=== PATIENT | female | born 1955 | race Caucasian/White ===

== ENCOUNTER 2022-04-30 12:32 | Outpatient (CLI) | payer BC, SELFPAY ==
--- NOTE | ~2022-04-30 | XR_ITS ---
XR lumbar spine min 4V DATE: 04/30/2022 13:04 INDICATION: Back pain. Lumbago. TECHNIQUE: AP, lateral, coned lateral lumbosacral views and flexion and extension lateral views. COMPARISON: 11/13/2016 MRI lumbar spine 03/11/2016 lumbar spine FINDINGS: There is diffuse osteopenia. Minimal anterolisthesis at L4-5 in flexion, reduced in neutral and extension. Otherwise normal alignm ent of the lumbar spine in flexion, neutral and extension. No fracture or bone destruction is evident. The included lower thoracic and lumbar pedicles are intac t. Minimal degenerative spurring of the lumbar spine. Lumbar and lumbosacral interspaces are relative ly well preserved. IMPRESSION: Minimal degenerative spurring. Minimal anterolisthesis at L4-5 in flexion Reviewed, dictated and finalized at location B.
== END 2022-04-30 12:33 | disposition home or self-care (01) ==
LOC: ANHIMG 12:38
PROVIDERS: PCP Internal Medicine
DX: M54.50 Low back pain, unspecified (principal); M77.8 Other enthesopathies, not elsewhere classified; M43.16 Spondylolisthesis, lumbar region
CPT/HCPCS: 72110

== ENCOUNTER 2022-05-20 07:30 | Outpatient (CLI) | payer BC, SELFPAY ==
--- NOTE | ~2022-05-20 | MR_ITS ---
. EXAMINATION: MR lumbar spine wo con DATE: 05/20/2022 08:33 INDICATION: Lumbago. TECHNIQUE: Magnetic resonance imaging (MRI) of the lumbar spine was performed without intravenous con trast. Sequences included sagittal T2-weighted FSE, sagittal T2-weighted FS FSE, sagittal T1-weighted FSE, and axial T2-weighted FSE. COMPARISON: Lumbar spine MRI 11/13/2016 FINDINGS: There is 3 degrees dextrocurvature of lumbar spine. Vertebral body heights are normal. Inte rvertebral disc heights are normal. The distal spinal cord signal intensity is normal. The conus medu llaris is at L1. The following disc levels are specifically discussed: L1-L2: The disc does not extend beyond the endplate margin. There is mild left facet joint osteoarthr itis. There is no neural foraminal stenosis. There is no central canal stenosis. L2-L3: The disc does not extend beyond the endplate margin. There is mild bilateral facet joint osteo arthritis. There is no neural foraminal stenosis. There is no central canal stenosis. L3-L4: The disc is mildly bulging. There is mild bilateral facet joint osteoarthritis. There is mild bilateral neural foraminal stenosis. There is no central canal stenosis. L4-L5: The disc is mildly bulging. There is no facet joint osteoarthritis. There is mild bilateral ne ural foraminal stenosis. There is no central canal stenosis. L5-S1: The disc is mildly bulging. There is mild right and moderate left facet joint osteoarthritis. There is mild bilateral neural foraminal stenosis. There is mild central canal stenosis. IMPRESSION: 1. Mild lumbar spondylosis, stable from 11/13/2016. Reviewed, dictated and finalized at location A.
== END 2022-05-20 07:31 | disposition home or self-care (01) ==
PROVIDERS: PCP Internal Medicine
DX: M54.50 Low back pain, unspecified (principal); M47.816 Spondylosis without myelopathy or radiculopathy, lumbar region
CPT/HCPCS: 72148

== ENCOUNTER 2023-10-18 11:09 | Emergency (ER) | payer BC, SELFPAY ==
[2023-10-18] VITALS (8 sets, daily range): BP systolic 122–147; BP diastolic 66–75; PULSE 70–88; RESP 13–26; TEMP 36.3; O2SAT 99–100
--- NOTE | ~2023-10-18 | CT_ITS ---
EXAMINATION: CT abdomen pelvis w con DATE: 10/18/2023 16:33 INDICATION: LLQ pain TECHNIQUE: Computed tomography (CT) of the abdomen and pelvis was performed with 100 mL Omnipaque-350 intravenous contrast. Automated exposure control and iterative reconstruction technique were employe d. The dose-length product was 406.50 mGy-cm. COMPARISON: 05/30/2015. FINDINGS: Lower thorax: Unremarkable Liver: Normal. Biliary/Gallbladder: Gallbladder is collapsed. No bile duct dilation. Pancreas: No mass or duct dilation. Spleen: Normal. Adrenals:No mass. Kidneys: No suspicious mass, obstructing stone, or hydronephrosis. GI tract: Mild distal esophageal and gastric wall edema. Mild sigmoid wall edema. No small or large b owel dilation. Normal appendix. Mesentery/Peritoneum: No ascites, mass, or free air. Retroperitoneum: No mass. Pelvis: Absent uterus. Mild bladder wall thickening. Soft Tissues: Soft tissues and body wall unremarkable. Bones: No acute osseous finding. IMPRESSION: Mild esophagitis/gastritis. Cystitis versus bladder wall thickening from incomplete distention. Correlate with urinalysis. Possible mild sigmoid colitis. Reviewed, dictated and finalized at location K. [facility] IMPRESSION: Mild esophagitis/gastritis. Cystitis versus bladder wall thickening from incomplete distention. Correlate w ith urinalysis. Possible mild sigmoid colitis.
[2023-10-18 11:35] LABS: Basophils Percent Auto 0.4 % (0.2-1.2); Eosinophils Absolute Auto 0.1 K/mm3 (0-0.3); Eosinophils Percent Auto 1.2 % (0-4.4); Hematocrit 42.2 % (37.0-47.0); Hemoglobin 13.3 g/dL (12.0-15.0); Immature Granulocyte Absolute 0.02 K/mm3 (0.00-0.031); Immature Granulocyte Percent A 0.4 % (0-0.5); Lymphocytes Absolute Auto 1.71 K/mm3 (0.9-3.2); Mean Corpuscular HGB Conc 31.5 g/dl (32-36); Mean Corpuscular Hemoglobin 30.3 pg (26-34); Mean Corpuscular Volume 96.1 fl (80-100); Mean Platelet Volume 10.3 fl (7.4-10.4); Monocytes Absolute Auto 0.6 K/mm3 (0.1-0.6); Monocytes Percent Auto 11.8 % (2.6-8.5); Neutrophils Absolute Auto 2.8 K/mm3 (1.3-6.7); Neutrophils Percent Auto 53.2 % (45.5-73.1); Platelet Count Result 271 k/mm3 (150-375); Red Blood Count 4.39 M/mm3 (4.2-5.4); Red Cell Distribution Width 12.5 % (11.5-14.5); White Blood Count 5.2 K/mm3 (4.5-10.0)
[2023-10-18 11:44] LABS: Prothrombin Time 13.3 Seconds (11.1-14.7)
[2023-10-18 11:45] LABS: Partial Thromboplastin Time 28.8 SECONDS (22.3-36.8)
[2023-10-18 11:51] LABS: Alanine Aminotransferase 20 U/L (6-35); Albumin Level 4.5 g/dL (3.5-5.1); Alkaline Phosphatase 68 U/L (38-126); Anion Gap 9 mmol/L (8-16); Aspartate Amino Transferase 25 U/L (14-36); Bilirubin,Total 0.4 mg/dL (0.2-1.3); Blood Urea Nitrogen 15 mg/dL (7-17); Calcium 9.6 mg/dL (8.4-10.2); Carbon Dioxide 27 mmol/L (22-30); Chloride 103 mmol/L (98-107); Estimated Glomerular Filt Rate > 60; Glucose 123 mg/dL (65-110); Sodium 139 mmol/L (137-145)
--- NOTE | 2023-10-18 17:15 | ED.GENADULT ---
HPI - General Adult General Chief complaint: GI Bleed Stated complaint: Rectal bleeding Time Seen by Provider: 10/18/23 15:58 History of Present Illness HPI narrative: The patient is a 68-year-old female who presents ER after having a bloody bowel movement. She felt sudden need to have bowel movement and when she did she felt more comfortable bottom when she looked in the stool there is only blood and no feces. She reports she has been having some nagging left-sided abdominal pain over last 3 days. No fevers chills or sweats. No history of diverticulitis. Denies urinary frequency urgency or dysuria. No history of hemorrhoids. Last colonoscopy was 5 years ago. Related Data Home Medications Medication Instructions Recorded Confirmed amlodipine 5 mg tablet 5 mg PO DAILY 09/17/23 09/17/23 blood-glucose transmitter (Dexcom 09/17/23 09/17/23 G6 Transmitter device) ezetimibe 10 mg tablet 10 mg PO DAILY 09/17/23 09/17/23 fexofenadine 180 mg tablet 180 mg PO DAILY 09/17/23 09/17/23 hyoscyamine sulfate 0.125 mg 0.125 mg PO QID PRN 09/17/23 09/17/23 tablet (Levsin) Allergies Allergy/AdvReac Type Severity Reaction Status Date / Time egg Allergy Mild Unknown Verified 09/17/23 14:15 lactose Allergy Mild Abdominal Verified 09/17/23 14:15 Pain milk Allergy Mild Abdominal Verified 09/17/23 14:15 Pain atorvastatin AdvReac Mild Unknown Verified 09/17/23 14:15 SEAFOOD Allergy Mild Anaphylactic Uncoded 09/17/23 14:15 Shock Review of Systems Review of Systems: All systems reviewed & are unremarkable except as noted in HPI and below Constitutional: Constitutional: Reports no additional constitutional complaints ENT: Reports system reviewed and no additional complaints, except as documented Cardiovascular: Cardiovascular: Reports no additional cardiovascular complaints Respiratory: Respiratory: Reports no additional respiratory complaints Gastrointestinal: Gastrointestinal: Reports abdominal pain, Denies diarrhea, Denies nausea and Denies vomiting Comments: Blood in stool PMFSH Past Medical History Medical History (Updated 10/18/23 @ 18:50 by Grant Diop MD) Diabetes Seasonal allergies Surgical History Surgical History (Updated 09/17/23 @ 14:18 by Jovanni Gaytan CMA) H/O: hysterectomy History of tonsillectomy Social History Social History (Updated 09/17/23 @ 14:16 by Jovanni Gaytan [facility]) Social History: Caffeine--Coffee 1 cup daily Smoking status: Never smoker Substance use: never Do You Feel Safe in your Home?: Yes Lack of Transportation: No Lack of Food: Never True Current Housing: I Have Housing Concerned About Future Housing: No Difficulty Paying Gas/Electric Bills: No Difficulty Paying for Meds: No Currently Unemployed: No Education: Bachelor's Degree Difficulty w/ Childcare or Family Care: No Exam Narrative: GENERAL: Well-appearing, well-nourished, and in no acute distress. HEAD: Normocephalic, atraumatic. ENT: Mucous membranes moist. NECK: Supple. CHEST: Clear to auscultation. No respiratory distress. HEART: Regular rate and rhythm. Normal peripheral pulses. ABDOMEN: Soft, mild tenderness left mid and upper abdomen, nondistended. She will rectal exam with positive occult blood with brown stool. EXTREMITIES: Normal range of motion. No edema. SKIN: Warm, dry, no rash. NEURO: Alert and oriented x3. PSYCH: Normal mood and affect. Course Course Emergency Course: Patient educated on labs and imaging studies. Discussed treatment plan. Discharged home. Vital Signs Vital signs: Vital Signs Temperature 97.4 F L 10/18/23 11:14 Pulse Rate 73 10/18/23 11:14 Respiratory Rate 16 10/18/23 11:14 Blood Pressure 147/66 H 10/18/23 11:14 Pulse Oximetry 100 10/18/23 11:14 Oxygen Delivery Room Air 10/18/23 11:14 Temperature 97.4 F L 10/18/23 11:14 Pulse Rate 72 10/18/23 17:10 Respiratory Rate
--- NOTE | 2023-10-18 17:42 | PC.NURSE ---
pt unable to urinate at this time. provided water and educated pt to notify nurse with any urge to urinate
[2023-10-18 18:03] LABS: Appearance Urine Clear (Clear); Bilirubin Urine Negative (Negative); Blood Urine Negative (Negative); Color Urine Yellow (Yellow); Glucose Urine UA Negative (Negative); Ketones Urine Negative (Negative); Leukocyte Esterase Ur Negative LEU/UL (Negative); Nitrate Urine Negative (Negative); Protein Urine Negative (Negative); Urobilinogen Urine 0.2 mg/dL (<2.0); pH Urine 6.5 (5.0-9.0)
[2023-10-18 18:11] LABS: Add Urine Microscopic? NO
[2023-10-18] MEDS: CIPROFLOXACIN 500 MG TAB PO (18:59)
[2023-10-18] MEDS: metroNIDAZOLE 500 MG TABLET PO (18:59)
== END 2023-10-18 19:08 | disposition home or self-care (01) ==
PROVIDERS: Emergency Provider Emergency Medicine; PCP Internal Medicine
DX: K52.9 Noninfective gastroenteritis and colitis, unspecified (principal); E11.9 Type 2 diabetes mellitus without complications; Z90.710 Acquired absence of both cervix and uterus; Z79.84 Long term (current) use of oral hypoglycemic drugs; K20.90 Esophagitis, unspecified without bleeding; K29.70 Gastritis, unspecified, without bleeding; R93.41 Abnormal radiologic findings on diagnostic imaging of renal pelvis, ureter, or bladder; R93.3 Abnormal findings on diagnostic imaging of other parts of digestive tract
CPT/HCPCS: 36415; 74177; 80053; 81003; 85025; 85610; 85730; 86850; 86900; 86901; 99284; A9270; Q9967

== ENCOUNTER 2023-11-11 12:59 | Outpatient (CLI) | payer BC, MEDICARE, SELFPAY ==
[2023-11-11 13:45] LABS: Appearance Urine Clear (Clear); Bilirubin Urine Negative (Negative); Blood Urine Negative (Negative); Color Urine Yellow (Yellow); Glucose Urine UA Negative (Negative); Ketones Urine Negative (Negative); Leukocyte Esterase Ur Negative LEU/UL (Negative); Nitrate Urine Negative (Negative); Protein Urine Negative (Negative); Specific Grav Ur 1.008 (1.001-1.035); Urobilinogen Urine 0.2 mg/dL (<2.0)
[2023-11-11 13:59] LABS: Add Urine Microscopic? NO
== END 2023-11-11 13:00 | disposition home or self-care (01) ==
LOC: ANHLAB 13:00
PROVIDERS: PCP Internal Medicine; Visit Provider Nurse Practitioner Family
DX: R35.0 Frequency of micturition (principal)
CPT/HCPCS: 81003

== ENCOUNTER 2024-04-23 10:51 | Outpatient (CLI) | payer MEDICARE, OTHER, SELFPAY ==
--- NOTE | ~2024-04-23 | DEXA_ITS ---
Bone Density Report Name: WILFREDO HERNANDEZ Age: 69 Sex: Female Ethnicity: White Date of : 1955 Indication: postmenopausal; screening for osteoporosis; hysterectomy; Referring Provider: KYLE GALLAGHER Study: Bone densitometry was performed. Exam Date: April 23, 2024 Accession number: [id number] Bone Density: Region BMD T-score Z-score Classification AP Spine(L1-L4) 0.685 -3.3 -1.4 Osteoporosis Femoral Neck (Left) 0.575 -2.5 -0.8 Osteoporosis Total Hip (Left) 0.749 -1.6 -0.2 Osteopenia Femoral Neck (Right) 0.591 -2.3 -0.7 Osteopenia Total Hip (Right) 0.680 -2.1 -0.8 Osteopenia Total Hip Mean 0.714 -1.9 -0.5 Osteopenia World Health Organization criteria for BMD impression classify patients as: Normal (T-score at or above -1.0), Osteopenia (T-score between -1.0 and -2.5), or Osteoporosis (T-score at or below -2.5). 10-year Fracture Risk: FRAX not reported because: Some T-score for Spine Total or Hip Total or Femoral Neck at or below -2.5 Clinical Information Provided by Patient: Has the following medical conditions: Hysterectomy Patient maximum height was 64.5 Menopause Age: 45 Does not regularly consume dairy products Drinks caffeinated beverages Onset of menses at age 15 Number of children 2 Impression: The patient has osteoporosis, based on the Total Spine T-score. Discussion: INCREASED RISK OF FRACTURE. BONE DENSITY IS UNDESIRABLY LOW AT ONE OR MORE SKELETAL SITES, CONSISTENT WITH POSTMENOPAUSAL OSTEOPOROSIS. This patient's lowest T-score meets the World Health Organization's (WHO) criteria for osteoporosis at one or more sites (T-score -2.5 or below). In untreated patients, the risk of osteoporotic fracture increases approximately two-fold for each 1.0 SD decrease in T-score. Low bone density is not the only risk factor for fracture; also consider factors such as patient's age, frailty or poor health, risk of falling, risk of injury, previous osteoporotic fracture, family history of osteoporosis, cigarette smoking, low body weight, etc. Not everyone with low bone mineral density has osteoporosis; osteomalacia and other metabolic bone disorders should also be considered. Patients who have osteoporosis should be evaluated for specific diseases and conditions (secondary causes) that may cause or contribute to bone loss. The [place] [employer] of Clinical Endocrinologists (AACE) and National Osteoporosis Foundation (NOF) recommend pharmacologic intervention for all postmenopausal women whose T-score is in this range. The patient should follow a healthful lifestyle (good nutrition with adequate calcium and vitamin D, and appropriate weight-bearing exercise). Follow-Up: Consider a repeat BMD and Vertebral Fracture Assessment (VFA) exam in 2 years or sooner if medically necessary, to
== END 2024-04-23 10:52 | disposition home or self-care (01) ==
LOC: ANHIMG 10:52
PROVIDERS: PCP Internal Medicine; Visit Provider Internal Medicine Endocrinology, Diabetes & Metabolism
DX: M81.0 Age-related osteoporosis without current pathological fracture (principal); M85.89 Other specified disorders of bone density and structure, multiple sites; Z78.0 Asymptomatic menopausal state; Z13.820 Encounter for screening for osteoporosis
CPT/HCPCS: 77080

== ENCOUNTER 2025-07-11 08:57 | Outpatient (CLI) | payer MEDICARE, OTHER, SELFPAY ==
--- NOTE | ~2025-07-11 | DEXA_ITS ---
Bone Density Report Name: WILFREDO HERNANDEZ Age: 70 Sex: Female Ethnicity: White Date of : 1955 Indication: postmenopausal osteoporosis; monitoring treatment; hysterectomy; Referring Provider: KYLE GALLAGHER Study: Bone densitometry was performed. Exam Date: July 11, 2025 Accession number: [id number] Bone Density: Region BMD T-score Z-score Classification AP Spine(L1-L4) 0.714 -3.0 -1.0 Osteoporosis Femoral Neck (Left) 0.625 -2.0 -0.3 Osteopenia Total Hip (Left) 0.818 -1.0 0.4 Normal Femoral Neck (Right) 0.586 -2.4 -0.7 Osteopenia Total Hip (Right) 0.807 -1.1 0.3 Osteopenia Total Hip Mean 0.813 -1.1 0.4 Osteopenia World Health Organization criteria for BMD impression classify patients as: Normal (T-score at or above -1.0), Osteopenia (T-score between -1.0 and -2.5), or Osteoporosis (T-score at or below -2.5). 10-year Fracture Risk: FRAX not reported because: Some T-score for Spine Total or Hip Total or Femoral Neck at or below -2.5 Treated for osteoporosis Previous Exams: Region Exam Age BMD T-score BMD Change BMD Change Date g/cm2 vs Baseline vs Previous AP Spine (L1-L4) 07/11/2025 70 0.714 -3.0 0.030 (4.3%)* 0.030 (4.3%)* 04/23/2024 69 0.685 -3.3 Total Hip(Left) 07/11/2025 70 0.818 -1.0 0.069 (9.2%)* 0.069 (9.2%)* 04/23/2024 69 0.749 -1.6 Total Hip(Right) 07/11/2025 70 0.807 -1.1 0.127 (18.7%)* 0.127 (18.7%)* 04/23/2024 69 0.680 -2.1 *Denotes significance at 95% confidence level, LSC for AP Spine = 0.022 g/cm2, LSC for Total Hip = 0.027 g/cm2 Clinical Information Provided by Patient: Is being treated for osteoporosis Has used the following medications: Vitamin D, Calcium Has the following medical conditions: Hysterectomy Patient maximum height was 66 Menopause Age: 45 Does not regularly consume dairy products Drinks caffeinated beverages Onset of menses at age 15 Number of children 2 Missed period for more than 6 months in a row Impression: The patient has osteoporosis, based on the Total Spine T-score. No significant bone loss was observed. Discussion: PATIENT UNDER TREATMENT WITH NO SIGNIFICANT BMD LOSS SINCE LAST EXAM. In an untreated patient, BMD typically declines with age. A lack of decline or gain is usually a sign that treatment is efficacious and fracture risk is reduced. It is important to ask patients whether they are taking their medications and to encourage continued and appropriate compliance with their osteoporosis therapies to reduce fracture risk. It is also important to review their risk factors and encourage appropriate calcium and vitamin D intakes, exercise, fall prevention and other lifestyle measures. Follow-Up: Consider a repeat BMD and Vertebral Fracture Assessment (VFA) exam in 2 years or sooner if medically necessary, to reassess this patient's status. Reported by: ILANA on 07/11/2025 9:39:00 AM. Reviewed, dictated and finalized at location A.
--- OUTSIDE RECORDS SUMMARY | 2025-07-11 09:44 | XMS_ITS | Clinical Summary ---
Author Organization [facility] Care Team Providers Care Power Digger Operator Name Role Phone Unavailable Primary Care Provider Unavailabl e Medications metroNIDAZOLE (FLAGYL) 500 MG Tablet Take 500 mg by mouth 3 times daily. Active Social History Tobacco Use Types Packs/Day Years Used Date Smoking Tobacco: Never Assessed Comments Unknown Sex and Gender Information Value Date Recorded Sex Assigned at Not on file Legal Sex Female 5:43 PM CDT Gender Identity Not on file Sexual Orientation Not on file Plan of Treatment Health Maintenance Due Date Last Done Comments Hepatitis C Virus (HCV) Screening 1955 TdaP Immunization 1955 Cologuard 2002 Colonoscopy 2002 Colorectal Cancer Screening 2002 Immunochemical Fecal Occult Blood 2002 Pneumococcal Immunization (5 0+ years) (1 of 1 - PCV) 2007 Zoster Immunization (1 of 2) 2007 Influenza Immunization (#1) 2025 SARS-COV-2 Immunization ( - season) 2025 Respiratory Syncytial Virus (RSV) Immunization (Adult) (1 - 1-dose 75+ series) 02/09/2032 Hepatitis B Immunization Aged Out No longer eligible based on patient's age to complete this topic Human Papillomavirus (HPV) Immunization Aged Out No longer eligible b ased on patient's age to complete this topic Meningococcal Immunization (ACWY) Aged Out No longer eligible based on patient's age to complete this topic Rotavirus Immunization Aged Out No lo nger eligible based on patient's age to complete this topic
--- OUTSIDE RECORDS SUMMARY | 2025-07-11 09:44 | XMS_ITS | Patient Health Record ---
Author Organization [facility] Address [address] [place] [address] Care Team Providers Care Strip Cleaner Name Role Phone Klever Estrada Unavailable [phone] Reason For Referral No Information Medications Medication SIG (Take, Route, Frequency, Duration) Notes Start Date End Date Status Tresiba FlexTouch 200 UNIT/ML Solution Pen-injector Subcutaneous Active Januvia 100 MG Tablet Oral Active BD ULTRA-FINE PEN NEEDLE 31 gauge x 3/16 NEEDLE, DISPOSABLE MISCELLANEOUS *Reorder from Stream for eRx and Interaction Alerts* Active amLODIPine Besylate 5 MG Tablet Oral Active Paxlovid (300/100) 20 x 150 MG & 10 x 100MG Tablet Therapy Pack Oral *Reorder from Biophyt[employer] Expert for eRx and Interaction Alerts* Active DEXCOM G6 EACH MISCELLANEOUS *Reorder from [employer] Expert for eRx and Interaction Alerts* Active ACCU-CHEK SOFTCLIX EACH MISCELLANEOUS *Reorder from [employer] Expert for eRx and Interaction Alerts* Active traMADol HCl 50 MG Tablet Oral Active IPRATROPIUM BROMIDE 21 MCG (0.03 %) NASAL SPRAY *Reorder from Stream for eRx and Interaction Alerts* Active Allergy Relief 180 mg Tablet Oral Active Glimepiride 1 MG Tablet Oral Active Ketoconazole 2% Cream External Active Ciprofloxacin-dexAME THasone 0.3-0.1 % Suspension Otic Active EPINEPHrine 0.3 MG/0.3ML Solution Auto-injector Injection Active Azithromycin 250 MG Tablet Oral Active Ciprofloxacin HCl 500 MG Tablet Oral Active ACCU-CHEK GUIDE TEST STRIPS *Reorder from Stream for eRx and Interaction Alerts* Active Pioglitazone HCl 15 MG Tablet Oral Active Plan Of Treatment No Information Insurance Providers Payer Name Payer Address Payer Phone Subscriber Number Group Number Insured Name Patient Relationship to Insured Coverage Start Date Coverage End Date [employer] [address] [place] [address] [id number] WILFREDO ALBARADO Self - patient is the insured
== END 2025-07-11 08:58 | disposition home or self-care (01) ==
LOC: ANHFOHIMG 08:57
PROVIDERS: PCP Internal Medicine; Visit Provider Internal Medicine Endocrinology, Diabetes & Metabolism
DX: M81.0 Age-related osteoporosis without current pathological fracture (principal); M85.852 Other specified disorders of bone density and structure, left thigh; M85.851 Other specified disorders of bone density and structure, right thigh
CPT/HCPCS: 77080